=== PATIENT | female | born 1965 | race African-American/Black ===

== ENCOUNTER → 2018-12-01 | Outpatient (CLI) | payer BC | END | disposition home or self-care (01) | LOC: CARD 09:44 | PROVIDERS: ATTEND Family Medicine | DX: R07.9 Chest pain, unspecified (principal) | CPT/HCPCS: 93017 ==

== ENCOUNTER 2021-05-23 12:17 | Emergency (ER) | payer BC ==
[~2021-05-23] VITALS: Ht 157.5 cm; Wt 85.9 kg
[2021-05-23 12:33] VITALS: BP 140/71
[2021-05-23] MEDS ORDERED: LIDOCAINE-MPF 1%, 5ML ONE (12:56)
[2021-05-23] MEDS ORDERED: LIDOCAINE-MPF 1%, 5ML INFIL ONE (13:00)
[2021-05-23] MEDS ORDERED: DIPH,PERTUSS(ACELL),TET VAC/PF 0.5 ML IM-VACC ONE ×2 (13:14→13:30)
== END 2021-05-23 13:47 | disposition home or self-care (01) ==
LOC: ED 12:30
DX: S60.452A Superficial foreign body of right middle finger, initial encounter (principal); X58.XXXA Exposure to other specified factors, initial encounter; Y93.89 Activity, other specified; Y92.009 Unspecified place in unspecified non-institutional (private) residence as the place of occurrence of the external cause; Y99.8 Other external cause status
CPT/HCPCS: 90471; 90715